=== PATIENT | male | born 1950 | race Caucasian/White ===

== ENCOUNTER 2022-10-09 12:26 | Emergency (ER) | payer OTHER, BC ==
[~2022-10-09] VITALS: Ht 175.3 cm; Wt 82.5 kg
[~2022-10-09 12:26] MED LIST: CLON1; CRUTCH2 USE; HYDACE5 PO; IBUHYD PO; METO50
[2022-10-09] MEDS ORDERED: AMLODIPINE BESY10 MG PO (12:43)
[2022-10-09] MEDS ORDERED: OXYC10TA19 PO (12:43)
[2022-10-09 16:00] VITALS: BP 148/91
[2022-10-09] MEDS ORDERED: IBUP600 PO (16:04)
[2022-10-09] MEDS ORDERED: LIDO700A20 TOP (16:04)
[2022-10-09] MEDS ORDERED: Norco 5-325 Ta1 EACH PO (16:04)
== END 2022-10-09 16:35 | disposition home or self-care (01) ==
LOC: ER 12:26
DX: S22.31XA Fracture of one rib, right side, initial encounter for closed fracture (principal); S42.142A Displaced fracture of glenoid cavity of scapula, left shoulder, initial encounter for closed fracture; S00.01XA Abrasion of scalp, initial encounter; S00.31XA Abrasion of nose, initial encounter; S00.81XA Abrasion of other part of head, initial encounter; S40.212A Abrasion of left shoulder, initial encounter; S70.312A Abrasion, left thigh, initial encounter; Z79.899 Other long term (current) drug therapy; V27.49XA Other motorcycle driver injured in collision with fixed or stationary object in traffic accident, initial encounter
CPT/HCPCS: 70450; 71260; 73030; 73552; 74177; 99285-25; Q9967